=== PATIENT | female | born 1995 | race Caucasian/White ===

== ENCOUNTER 2017-07-17 17:38 | Emergency (ER) | payer OTHER ==
[2017-07-17] MEDS ORDERED: TRAMADOL HCL 50 MG TABLET PO ONE (18:21)
--- NOTE | 2017-07-17 18:23 | ER Document Report ---
ED Medical Screen (RME) - General Chief Complaint: Vaginal Bleeding Stated Complaint: STOMACH/PELVIC/BACK PAIN, VAGINAL BLEEDING Time Seen by Provider: 07/17/17 18:06 Notes: RME DISCLOSURE I have seen this patient as part of a Rapid Medical Evaluation and, if applicable, placed any initially appropriate orders. The patient will be seen and fully evaluated, including a full history and physical exam, by a provider ( in Main ED or Fast Track) when a room becomes available. 21-year-old female 3 months here with complaints of abdominal cramping and heavy vaginal bleeding that started late last night and into today. She states that she is going through many pads and completely soaking them. She also complains of passing some daley colored tissue. Her delivery was via . - Related Data Allergies/Adverse Reactions: steroids Allergy (Uncoded 07/17/17 17:42) Past Medical History - Social History Chew tobacco use (# tins/day): No Frequency of alcohol use: Occasional Drug Abuse: None Renal/ Medical History: Denies: Hx Peritoneal Dialysis Psychiatric Medical History: Reports: Hx Depression Past Surgical History: Reports: Hx Section - x1, Hx Cholecystectomy, Hx Tonsillectomy, Hx Tubal Ligation Physical Exam - Vital signs Vitals: Temp Pulse Resp BP Pulse Ox 97.8 F 94 20 133/72 H 94 07/17/17 17:43 07/17/17 17:43 07/17/17 17:43 07/17/17 17:43 07/17/17 17:43 Course - Vital Signs Vital signs: Temp Pulse Resp BP Pulse Ox 97.8 F 94 20 133/72 H 94 07/17/17 17:43 07/17/17 17:43 07/17/17 17:43 07/17/17 17:43 07/17/17 17:43
[2017-07-17 18:53] LABS: ABSOLUTE EOSINOPHILS # (AUTO) 0.3 10^3/uL (0.0-0.6); ABSOLUTE LYMPHOCYTES (AUTO) 2.8 10^3/uL (0.5-4.7); ABSOLUTE MONOCYTES (AUTO) 0.7 10^3/uL (0.1-1.4); ABSOLUTE NEUT (AUTO) 7.9 10^3/uL (1.7-8.2); BASOPHILS % (AUTO) 0.4 % (0-2); EOSINOPHILS % (AUTO) 2.1 % (0-6); HEMATOCRIT 40.9 % (36.0-47.0); HEMOGLOBIN 13.5 g/dL (12.0-15.5); LYMPHOCYTES % (AUTO) 24.1 % (13-45); MEAN CORPUSCULAR HEMOGLOBIN 27.5 pg (27.0-33.4); MEAN CORPUSCULAR HGB CONC 32.9 g/dL (32.0-36.0); MEAN CORPUSCULAR VOLUME 84 fl (80-97); MONOCYTES % (AUTO) 6.2 % (3-13); PLATELET COUNT 265 10^3/uL (150-450); RED BLOOD COUNT 4.89 10^6/uL (3.72-5.28); RED CELL DISTRIBUTION WIDTH 16.1 % (11.5-14.0); SEGMENTED NEUTROPHILS % (AUTO) 67.2 % (42-78); TOTAL CELLS COUNTED % (AUTO) 100 %; WHITE BLOOD COUNT 11.8 10^3/uL (4.0-10.5)
--- NOTE | 2017-07-17 19:10 | ER Document Report ---
ED GI/ - General Chief Complaint: Vaginal Bleeding Stated Complaint: STOMACH/PELVIC/BACK PAIN, VAGINAL BLEEDING Time Seen by Provider: 07/17/17 18:06 Mode of Arrival: Ambulatory Information source: Patient - HPI Patient complains to provider of: Abdominal pain, Vaginal bleeding Onset: Yesterday Notes: 07/17/17 19:08 Patient is 3 months via . She states that she had a normal period last month. She started to have vaginal bleeding yesterday which she states seemed like a normal period and then today she started to have a lot of severe pain in her lower abdomen and significantly heavy bleeding. She states that she is changing a tampon and a pad every hour. She does report seeing some blood clots. She is not on blood thinning medications. She denies fever. She denies any nausea, vomiting, diarrhea. No dysuria. She called her OB/ ACADEMIC ADMINISTRATOR who referred her to the emergency department due to the fact of her heavy amount of bleeding. She denies any chest pain or shortness of breath. No dizziness. No syncope. No fever. No other complaints. - Related Data Allergies/Adverse Reactions: steroids Allergy (Uncoded 07/17/17 17:42) Past Medical History - Social History Smoking Status: Current Every Day Smoker Chew tobacco use (# tins/day): No Frequency of alcohol use: Occasional Drug Abuse: None Family History: Reviewed & Not Pertinent Patient has suicidal ideation: No Patient has homicidal ideation: No Renal/ Medical History: Denies: Hx Peritoneal Dialysis Psychiatric Medical History: Reports: Hx Depression Past Surgical History: Reports: Hx Section - x1, Hx Cholecystectomy, Hx Tonsillectomy, Hx Tubal Ligation Review of Systems - Review of Systems -: Yes All other systems reviewed and negative Physical Exam - Vital signs Vitals: Temp Pulse Resp BP Pulse Ox 97.8 F 94 20 133/72 H 94 07/17/17 17:43 07/17/17 17:43 07/17/17 17:43 07/17/17 17:43 07/17/17 17:43 - Notes Notes: GENERAL: alert, cooperative, nontoxic, no distress. HEAD: normocephalic, atraumatic EYES: conjunctiva pink without discharge, no external redness or swelling. EARS: no external swelling, no external redness NOSE: atraumatic, no external swelling MOUTH/THROAT: mucous membranes moist and pink, posterior pharynx without erythema, swelling, exudate. No trismus or drooling. NECK: soft, supple, full range of motion, no meningismus. CHEST: no distress, lungs clear and equal throughout. No wheezing, rales, rhonchi. CARDIAC: regular rate and rhythm, no murmur, normal capillary refill, normal pulses. No peripheral edema noted. ABDOMEN: Soft, tenderness across the lower abdomen. No rebound tenderness, mild voluntary guarding. No mass. BACK: full range of motion, no CVA tenderness. EXTREMITIES: full range of motion of all extremities. No redness, no swelling. NEURO: alert and oriented x 3, no focal deficits, full range of motion of all extremities. PYSCH: appropriate mood, affect. Patient is cooperative. SKIN: pink, warm, dry, no rash. : Performed with female health analyst at the bedside. No external lesions. Small amount of blood within the vaginal vault. No clots. Cervix is closed. No active hemorrhage. Mild bilateral adnexal tenderness on bimanual exam, no cervical motion tenderness. Course - Re-evaluation Re-evalutation: 07/17/17 20:52 The patient is nontoxic appearing with stable vitals. She is here with complaints of heavy vaginal bleeding and pain. This started yesterday. At some point today she states she was changing her pad and tampon every hour. Pelvic exam in the emergency department does not show any significant bleeding, there is some blood within the vaginal vault but no active hemorrhage at this time. Her hemoglobin is 13.5. She has no other significant symptoms. GC chlamydia cultures currently pending. Wet prep is unremarkable. Quantitative hCG is negative. Pelvic ultrasound shows no acute abnormalities with no products of conception or other tissue within the endometrium. Patient appears to have a urinary tract infection. She will be given a dose of Keflex in the emergency department will be discharged home with Keflex and Voltaren to take for pain. She will be given an CALL WORKER referral since she recently moved here and does not have an CALL WORKER. She was instructed to return the emergency department if she gets to the point where she is changing tampon or pad more than once an hour has extreme dizziness, passes out, severe pain, high fever, or has any further concerns. The patient is noted to have elevated blood pressure during today's emergency department visit. The patient was informed of this finding. The patient was instructed that this may be related to pre-hypertension and requires further evaluation with a primary care provider. The patient has no hypertensive symptoms at this time. The patient's emergency department workup and current diagnosis were explained to the patient and or family. Follow-up instructions were provided. Medications if prescribed were discussed. Instructions for when to return to the emergency department including specific worrisome symptoms were discussed with the patient and/or family. - Vital Signs Vital signs: Temp Pulse Resp BP Pulse Ox 97.8 F 94 20 133/72 H 94 07/17/17 17:43 07/17/17 17:43 07/17/17 17:43 07/17/17 17:43 07/17/17 17:43 - Laboratory Result Diagrams: 07/17/17 18:37 Laboratory results interpreted by me: 07/17/17 07/17/17 18:37 19:27 WBC 11.8 H RDW 16.1 H Urine Protein 100 H Urine Blood LARGE H Ur Leukocyte Esterase MODERATE H - Diagnostic Test Radiology reviewed: Image reviewed, Reports reviewed - Ultrasound shows no acute abnormalities. Discharge - Discharge Clinical Impression: Dysfunctional uterine bleeding UTI (urinary tract infection) Qualifiers: Urinary tract infection type: acute cystitis Hematuria presence: without hematuria Qualified Code(s): N30.00 - Acute cystitis without hematuria Condition: Stable Disposition: HOME, SELF-CARE Instructions: Cephalexin ([facility]), Urinary Tract Infection ([facility]), Vaginal Bleeding ([facility]) Additional Instructions: Take medication as prescribed. Drink plenty fluids. Follow-up with CALL WORKER at the next available appointment. Follow-up sooner for increasing pain, fever, persistent vomiting, severe abdominal pain, passing out, dizziness, chest pain, or for any further concerns. Your blood pressure was elevated during today's visit. Have this rechecked with your doctor. Prescriptions: Cephalexin Monohydrate [Keflex 500 mg Capsule] 500 mg PO Q6H #28 capsule Diclofenac Sodium [Voltaren 50 Mg Tablet.Dr] 50 mg PO BID #20 tablet.dr Forms: Elevated Blood Pressure, Smoking Cessation Education Referrals: GRANT WILD MD [ACTIVE STAFF] - Follow up as needed [facility] [Provider Group] - Follow up as needed
[2017-07-17] MEDS ORDERED: KETOROLAC TROMETHAMINE INJ/PF 30 MG/1 ML SDV IM ONE (20:02)
[2017-07-17 20:13] LABS: APPEARANCE,URINE CLOUDY; BILIRUBIN,URINE NEGATIVE (NEGATIVE); COLOR,URINE RED; GLUCOSE, URINE NEGATIVE (NEGATIVE); KETONES,URINE NEGATIVE (NEGATIVE); LEUKOCYTE ESTERASE,URINE MODERATE (NEGATIVE); NITRITE,URINE NEGATIVE (NEGATIVE); PROTEIN,URINE 100 mg/dL (NEGATIVE); URINE SPECIFIC GRAVITY 1.016; UROBILINOGEN,URINE NEGATIVE mg/dL (<2.0)
[2017-07-17] MEDS ORDERED: CEPHALEXIN 500 MG CAPSULE PO ONE (20:27)
[2017-07-17 20:30] LABS: T.VAGINALIS (WET MOUNT) NO TRICHOMONAS SEEN; WBCS (WET MOUNT) 1+ WBCS SEEN; YEAST (WET MOUNT) NO YEAST SEEN
[2017-07-17 20:31] LABS: RBCS (WET MOUNT) 4+ RBCS SEEN
--- NOTE | 2017-07-17 20:47 | RADIOLOGY REPORT (SQ) ---
EXAM DESCRIPTION: U/S NON OB PEL TV W/DOPPLER COMPLETED DATE/TIME: 07/17/2017 8:34 pm REASON FOR STUDY: bleed; eval for rPOC COMPARISON: None. TECHNIQUE: Dynamic and static grayscale images acquired of the pelvis via transvaginal approach and recorded on PACS. Additional selected color Doppler and spectral images recorded. LIMITATIONS: Limited exam due to patient pain and overlying bowel gas. FINDINGS: UTERUS: Contour normal. No mass. ENDOMETRIAL STRIPE: No focal or generalized thickening. No masses. CERVIX: No nabothian cysts. RIGHT OVARY: Ovary not visualized. LEFT OVARY: Ovary not visualized. FREE FLUID: None noted. OTHER: No other significant finding. MEASUREMENTS: UTERUS: 4.6 x 5.2 x 9.5 cm. ENDOMETRIAL STRIPE: 4 mm. RIGHT OVARY: Not visualized. LEFT OVARY: Not visualized. IMPRESSION: LIMITED STUDY. OVARIES NOT VISUALIZED. NO RETAINED PRODUCTS, SOFT TISSUE, OR FLUID IN THE ENDOMETRIAL CAVITY. TECHNICAL DOCUMENTATION: JOB ID: [id number] [employer]- All Rights Reserved Reading location - IP/workstation name: [email or web address]
[2017-07-17 21:11] VITALS: BP 134/74
[2017-07-17 21:50] LABS: CHLAM PCR NOT DETECTED (NOT DETECT); GON PCR NOT DETECTED (NOT DETECT)
== END 2017-07-17 21:13 | disposition home or self-care (01) ==
LOC: ER 17:38
DX: N93.8 Other specified abnormal uterine and vaginal bleeding (principal); N30.00 Acute cystitis without hematuria; R10.2 Pelvic and perineal pain; R03.0 Elevated blood-pressure reading, without diagnosis of hypertension; F17.200 Nicotine dependence, unspecified, uncomplicated; Z98.890 Other specified postprocedural states
CPT/HCPCS: 99284; 96372; 36415; 87210; 84702; 85025; 81001; 87491; 87591; 76830; 93976; J1885

== ENCOUNTER 2017-09-19 19:27 | Emergency (ER) | payer OTHER ==
[2017-09-19] MEDS ORDERED: ONDANSETRON HCL INJ/PF 4 MG/2 ML SDV IV ONE (20:25)
[2017-09-19] MEDS ORDERED: FENTANYL CITRATE INJ/PF 100 MCG/2 ML AMPUL IV ONE (20:25)
[2017-09-19] MEDS ORDERED: NORMAL SALINE 1000 ML 1,000 ML IV ONE ×2 (20:25→22:36)
--- NOTE | 2017-09-19 20:32 | ER Document Report ---
ED GI/ - General Chief Complaint: Abdominal Pain Stated Complaint: ABDOMINAL PAIN Time Seen by Provider: 09/19/17 20:25 Notes: Chief complaint: abdominal pain: Abdominal pain History of complain:( obtained from----patient) 22 years old female presents today with periumbilical abdominal pain and discomfort early this morning gradually the pain descended towards the right lower quadrant. Sharp pain with fever and chills therefore present to the ED. Had some dysuria no frequency or urgency. Denies any other constitutional symptoms. Onset: One day since this morning gradual Duration: Since this morning Severity: Moderate to severe Quality: Sharp Context: Possible appendicitis Exacerbating factor and relieving factors: Pressure increases the pain REVIEW OF SYSTEMS: CONSTITUTIONAL : Denies fever, chills, or sweats. Denies recent illness. EENT: Denies eye, ear, throat, or mouth pain or symptoms. Denies nasal or sinus congestion or discharge. Denies throat, tongue, or mouth swelling or difficulty swallowing. CARDIOVASCULAR: Denies chest pain. Denies palpitations or racing or irregular heart beat. Denies ankle edema. RESPIRATORY: Denies cough, cold, or chest congestion. Denies shortness of breath, difficulty breathing, or wheezing. GASTROINTESTINAL: As per history of complain GENITOURINARY: Denies difficulty urinating, painful urination, burning, frequency, blood in urine, or discharge. FEMALE GENITOURINARY: Denies vaginal bleeding, heavy or abnormal periods, irregular periods. Denies vaginal discharge or odor. MUSCULOSKELETAL: Denies back or neck pain or stiffness. Denies joint pain or swelling. SKIN: Denies rash, lesions or sores. HEMATOLOGIC : Denies easy bruising or bleeding. LYMPHATIC: Denies swollen, enlarged glands. NEUROLOGICAL: Denies confusion or altered mental status. Denies passing out or loss of consciousness. Denies dizziness or lightheadedness. Denies headache. Denies weakness or paralysis or loss of use of either side. Denies problems with gait or speech. Denies sensory loss, numbness, or tingling. Denies seizures. PSYCHIATRIC: Denies anxiety or stress. Denies depression, suicidal ideation, or homicidal ideation. ALL OTHER SYSTEMS REVIEWED AND NEGATIVE. PHYSICAL EXAMINATION: GENERAL: Well-appearing, well-nourished and in mild to moderate acute distress. Morbid obesity HEAD: Atraumatic, normocephalic. EYES: Pupils equal round and reactive to light, extraocular movements intact, conjunctiva are normal. ENT: Nares patent, oropharynx clear without exudates. Moist mucous membranes. NECK: Normal range of motion, supple without lymphadenopathy LUNGS: Breath sounds clear to auscultation bilaterally and equal. No wheezes rales or rhonchi. HEART: Regular rate and rhythm without murmurs ABDOMEN: Soft, sharp tenderness over the right lower quadrant with rebound tenderness and guarding. Female : deferred Musculoskeletal: Normal range of motion, no pitting or edema. No cyanosis. NEUROLOGICAL: Cranial nerves grossly intact. Normal speech, normal gait. Normal sensory, motor exams PSYCH: Normal mood, normal affect. SKIN: Warm, Dry, normal turgor, no rashes or lesions noted. Dictation was performed using [employer] voice recognition software TRAVEL OUTSIDE OF THE [place] IN LAST 30 DAYS: No - Related Data Allergies/Adverse Reactions: steroids Allergy (Uncoded 07/17/17 17:42) Past Medical History - Social History Smoking Status: Unknown if Ever Smoked Chew tobacco use (# tins/day): No Smoking Education Provided: No Frequency of alcohol use: Rare Drug Abuse: None Family History: Reviewed & Not Pertinent Patient has suicidal ideation: No Patient has homicidal ideation: No Renal/ Medical History: Denies: Hx Peritoneal Dialysis Psychiatric Medical History: Reports: Hx Depression Past Surgical History: Reports: Hx Section - x1, Hx Cholecystectomy, Hx Tonsillectomy, Hx Tubal Ligation Review of Systems - Review of Systems Notes: Dictated Physical Exam - Vital signs Vitals: Temp Pulse Resp BP Pulse Ox 99.0 F 96 18 123/82 97 09/19/17 20:02 09/19/17 20:02 09/19/17 20:02 09/19/17 20:02 09/19/17 20:02 Course - Re-evaluation Re-evalutation: 09/19/17 20:31 Dictated 09/19/17 20:31 The case was discussed with surgeon elevator conductor. Requested me to do a CT of the abdomen - Vital Signs Vital signs: Temp Pulse Resp BP Pulse Ox 99.0 F 96 18 123/82 97 09/19/17 20:02 09/19/17 20:02 09/19/17 20:02 09/19/17 20:02 09/19/17 20:02 Discharge - Discharge Clinical Impression: Acute abdominal pain Acute appendicitis Qualifiers: Acute appendicitis type: with localized peritonitis Qualified Code(s): K35.3 - Acute appendicitis with localized peritonitis
[2017-09-19 21:00] LABS: ABSOLUTE BASOPHILS # (AUTO) 0.1 10^3/uL (0.0-0.2); ABSOLUTE EOSINOPHILS # (AUTO) 0.3 10^3/uL (0.0-0.6); ABSOLUTE LYMPHOCYTES (AUTO) 2.3 10^3/uL (0.5-4.7); ABSOLUTE MONOCYTES (AUTO) 0.7 10^3/uL (0.1-1.4); ABSOLUTE NEUT (AUTO) 7.3 10^3/uL (1.7-8.2); BASOPHILS % (AUTO) 0.5 % (0-2); EOSINOPHILS % (AUTO) 2.9 % (0-6); HEMATOCRIT 43.1 % (36.0-47.0); HEMOGLOBIN 14.4 g/dL (12.0-15.5); LYMPHOCYTES % (AUTO) 21.5 % (13-45); MEAN CORPUSCULAR HEMOGLOBIN 28.3 pg (27.0-33.4); MEAN CORPUSCULAR HGB CONC 33.3 g/dL (32.0-36.0); MEAN CORPUSCULAR VOLUME 85 fl (80-97); MONOCYTES % (AUTO) 6.3 % (3-13); PLATELET COUNT 213 10^3/uL (150-450); RED BLOOD COUNT 5.09 10^6/uL (3.72-5.28); RED CELL DISTRIBUTION WIDTH 15.6 % (11.5-14.0); SEGMENTED NEUTROPHILS % (AUTO) 68.8 % (42-78); TOTAL CELLS COUNTED % (AUTO) 100 %; WHITE BLOOD COUNT 10.7 10^3/uL (4.0-10.5)
[2017-09-19 21:04] LABS: APPEARANCE,URINE CLEAR; BILIRUBIN,URINE NEGATIVE (NEGATIVE); COLOR,URINE YELLOW; GLUCOSE, URINE NEGATIVE (NEGATIVE); KETONES,URINE NEGATIVE (NEGATIVE); LEUKOCYTE ESTERASE,URINE SMALL (NEGATIVE); NITRITE,URINE POSITIVE (NEGATIVE); PROTEIN,URINE NEGATIVE (NEGATIVE); URINE SPECIFIC GRAVITY 1.018; UROBILINOGEN,URINE NEGATIVE mg/dL (<2.0)
[2017-09-19 21:14] LABS: ALANINE AMINOTRANSFERASE 28 U/L (9-52); ALBUMIN 4.5 g/dL (3.5-5.0); ALKALINE PHOSPHATASE 61 U/L (38-126); ANION GAP 15 (5-19); ASPARTATE AMINO TRANSFERASE 18 U/L (14-36); BILIRUBIN,DIRECT 0.2 mg/dL (0.0-0.4); BILIRUBIN,TOTAL 0.2 mg/dL (0.2-1.3); BLOOD UREA NITROGEN 8 mg/dL (7-20); CALCIUM 9.8 mg/dL (8.4-10.2); CARBON DIOXIDE 26 mmol/L (22-30); CHLORIDE 106 mmol/L (98-107); GLUCOSE 91 mg/dL (75-110); LIPASE 45.3 U/L (23-300); POTASSIUM 4.3 mmol/L (3.6-5.0); SODIUM 146.5 mmol/L (137-145); TOTAL PROTEIN 6.8 g/dL (6.3-8.2)
--- NOTE | 2017-09-19 22:17 | ER Document Report ---
ED GI/ - General Chief Complaint: Abdominal Pain Stated Complaint: ABDOMINAL PAIN Time Seen by Provider: 09/19/17 20:25 Notes: Patient is a 22-year-old female presents emergency room with a chief complaint of periumbilical right lower quadrant pain. Patient states she is chronic pelvic pain due to complicated cysts on her ovaries. Patient states that she woke up this morning with pain around her bellybutton that is still present in that area and now shoots into her left lower quadrant. Patient denies any fevers or chills admits to nausea with occasional vomiting. States that she still has her appendix. Patient states that she is scheduled to have a procedure for her ovaries with her INTELLIGENCE AGENT regarding a tumor versus mass on her right ovary TRAVEL OUTSIDE OF THE [place] IN LAST 30 DAYS: No - Related Data Allergies/Adverse Reactions: steroids Allergy (Uncoded 07/17/17 17:42) Past Medical History - Social History Smoking Status: Unknown if Ever Smoked Chew tobacco use (# tins/day): No Frequency of alcohol use: Rare Drug Abuse: None Family History: Reviewed & Not Pertinent Patient has suicidal ideation: No Patient has homicidal ideation: No Renal/ Medical History: Denies: Hx Peritoneal Dialysis Psychiatric Medical History: Reports: Hx Depression Past Surgical History: Reports: Hx Section - x1, Hx Cholecystectomy, Hx Tonsillectomy, Hx Tubal Ligation Physical Exam - Vital signs Vitals: Temp Pulse Resp BP Pulse Ox 99.0 F 96 18 123/82 97 09/19/17 20:02 09/19/17 20:02 09/19/17 20:02 09/19/17 20:02 09/19/17 20:02 - Notes Notes: PHYSICAL EXAM GENERAL: Alert, interacts well. HEAD: Normocephalic, atraumatic. EYES: Pupils equal, round, and reactive to light. Extraocular movements intact. ENT: Oral mucosa moist, tongue midline. NECK: Full range of motion. Supple. Trachea midline. LUNGS: Clear to auscultation bilaterally, no wheezes, rales, or rhonchi. No respiratory distress. HEART: Regular rate and rhythm. No murmurs, gallops, or rubs. ABDOMEN: Soft, nondistended, nontender. No guarding, rebound, or rigidity.. Bowel sounds present in all 4 quadrants. Female exam deferred EXTREMITIES: Moves all 4 extremities spontaneously. No edema, radial and dorsalis pedis pulses 2/4 bilaterally. No cyanosis. NEUROLOGICAL: Alert and oriented x4. Normal speech. PSYCH: Normal affect, normal mood. SKIN: Warm, dry, normal turgor. No rashes or lesions noted. Course - Re-evaluation Re-evalutation: 09/20/17 01:08 Presentation of generalized, intermittent abdominal pain. Abdominal exam is benign with periumbical and RLQ tenderness without rebound . Vitals are normal at the time of arrival. Laboratories are unremarkable without evidence of cystitis, , or leukocytosis. Patient is overall very well in appearance. CT ordered in triage with normal appendix. Given tenderness, surgery consulted who asked for TVUS which shows minimal free fluid and omplicated cyst on left ovary, Right ovary without evidence of tumor and nothing evident on US from 06/2017. given based on clinical history and examination I do not suspect an acute appendicitis, tubo-ovarian abscess, related pathology, pelvic inflammatory disease, mesenteric ischemia, or pyelonephritis. Surgery consulted OBGYn who agrees with outpatient management , Will discharge home with return precautions and followup recommendations. - Vital Signs Vital signs: Temp Pulse Resp BP Pulse Ox 99.0 F 96 18 123/82 97 09/19/17 20:02 09/19/17 20:02 09/19/17 20:02 09/19/17 20:02 09/19/17 20:02 - Laboratory Result Diagrams: 09/19/17 20:40 09/19/17 20:40 Laboratory results interpreted by me: 09/19/17 09/19/17 09/19/17 20:40 20:40 20:40 WBC 10.7 H RDW 15.6 H Sodium 146.5 H Ammonia Urine Nitrite POSITIVE H Ur Leukocyte Esterase SMALL H 09/19/17 21:10 WBC RDW Sodium Ammonia < 8.7 L Urine Nitrite Ur Leukocyte Esterase - Diagnostic Test Radiology reviewed: Image reviewed, Reports reviewed Discharge - Discharge Clinical Impression: Chronic pelvic pain in female Condition: Good Disposition: HOME, SELF-CARE Additional Instructions: PELVIC PAIN: There are many causes of pain in the pelvic area. The cause could be the tubes, ovaries, uterus, intestines, appendix, pelvic muscles and connective tissue, or the urinary tract. The cause of your pelvic pain is not clear. However, it seems safe to treat you outside the hospital. If the pain sounds like a temporary problem, we sometimes wait to see if it goes away. Other patients may need additional tests, such as pelvic ultrasound or cultures. Conditions may change. Call us or come back for reexamination if any problems occur, such as: (1) Pain that becomes more severe, steady, or becomes concentrated in one specific area. Also, pain that is more severe with movement or coughing. (2) Vomiting that persists or becomes more frequent. (3) Blood in the vomitus, urine, or bowel movements. Blood in the stool may have a tarry or black appearance. (4) Shaking chills or fever greater than 100 degrees. (5) The abdomen becomes more distended or swollen. (6) Bowel movements cease. (7) Heavy vaginal bleeding. ORAL NARCOTIC MEDICATION: You have been given a prescription for pain control. This medication is a narcotic. It's best taken with food, as nausea can result if taken on an empty stomach. Don't operate machinery or drive within six hours of taking this medication. Do not combine this medicine with alcohol, or with any medication which can cause sedation (such as cold tablets or sleeping pills) unless you get permission from the physician. Narcotics tend to cause constipation. If possible, drink plenty of fluids and eat a diet high in fiber and fruits. Please be aware that prescription narcotics also have the potential for abuse. People become addicted to these medications because of the general sense of wellbeing that they induce. This feeling along with a significant reduction in tension, anxiety, and aggression provides a stimulating seductive quality to these drugs. Once your pain is under control, we encourage you to discard your unused narcotics. FOLLOW-UP CARE: If you have been referred to a physician for follow-up care, call the physician s office for an appointment as you were instructed or within the next two days. If you experience worsening or a significant change in your symptoms, notify the physician immediately or return to the Emergency Department at any time for re-evaluation. Prescriptions: Tramadol HCl 50 mg PO TID #15 tablet Forms: Parent Work Note Referrals: BRUNO CARRINGTON FNP [Primary Care Provider] - Follow up tomorrow
--- NOTE | 2017-09-19 22:22 | RADIOLOGY REPORT (SQ) ---
EXAM DESCRIPTION: CT ABD/PELVIS WITH IV ONLY COMPLETED DATE/TIME: 09/19/2017 10:06 pm REASON FOR STUDY: Acute appendicitis COMPARISON: None. TECHNIQUE: CT scan of the abdomen and pelvis performed using helical scanning technique with dynamic intravenous contrast injection. No oral contrast. Images reviewed with lung, soft tissue, and bone windows. Reconstructed coronal and sagittal MPR images reviewed. Delayed images for evaluation of the urinary system also acquired. All images stored on PACS. All CT scanners at this facility use dose modulation, iterative reconstruction, and/or weight based d osing when appropriate to reduce radiation dose to as low as reasonably achievable (ALARA). [facility]: Dose Right [facility]: CareDose [facility]: Dose Right [facility]: Teradose 4D [facility]: panOpen CONTRAST TYPE AND DOSE: contrast/concentration: Isovue 370.00 mg/ml; Total Contrast Delivered: 65.0 ml; Total Saline Delivered: 30.0 ml RENAL FUNCTION: None required. The patient is less than 50 years old. RADIATION DOSE: CT Rad equipment meets quality standard of care and radiation dose reduction techniq ues were employed. CTDIvol: 21.1 mGy. DLP: 2394 mGy-cm.. LIMITATIONS: None. FINDINGS: LOWER CHEST: No significant findings. No nodules or infiltrates. LIVER: Normal size. No masses. No dilated ducts. SPLEEN: Normal size. No focal lesions. PANCREAS: No masses. No significant calcifications. No adjacent inflammation or peripancreatic fluid collections. Pancreatic duct not dilated. GALLBLADDER: Surgically absent. ADRENAL GLANDS: No significant masses or asymmetry. RIGHT KIDNEY AND URETER: No solid masses. No significant calcifications. No hydronephrosis or hyd roureter. LEFT KIDNEY AND URETER: No solid masses. No significant calcifications. No hydronephrosis or hydr oureter. AORTA AND VESSELS: No aneurysm. No dissection. Renal arteries, SMA, celiac without stenosis. RETROPERITONEUM: No retroperitoneal adenopathy, hemorrhage or masses. BOWEL AND PERITONEAL CAVITY: No masses or inflammatory changes. No free fluid or peritoneal masses. APPENDIX: Normal. PELVIS: No mass. No free fluid. Normal bladder. ABDOMINAL WALL: No masses. No hernias. BONES: No significant or acute findings. OTHER: No other significant finding. IMPRESSION: NO SIGNIFICANT OR ACUTE FINDING IN THE ABDOMEN OR PELVIS ON CT SCAN WITH IV CONTRAST. TECHNICAL DOCUMENTATION: JOB ID: [id number] Quality ID # [id number]: Final reports with documentation of one or more dose reduction techniques (e.g., Au tomated exposure control, adjustment of the mA and/or kV according to patient size, use of iterative reconstruction technique) 2010 [employer]- All Rights Reserved Reading location - IP/workstation name: [email or web address]
--- NOTE | 2017-09-19 23:48 | RADIOLOGY REPORT (SQ) ---
EXAM DESCRIPTION: CLINICAL HISTORY: 22 years Female RLQ pain COMPARISON: None. TECHNIQUE: Transvaginal duplex imaging performed to evaluate the pelvis. FINDINGS: Trace fluid is present in the cul-de-sac. Uterus measures 9.1 x 4.7 x 6.3 cm. Right ovary measures 2.6 x 4.7 x 2.3 cm. Normal ovarian blood flow is present. The left ovary measures 3.8 x 1.9 x 2 cm. There is normal ovarian blood flow. Complex cyst measures 2.3 x 1.6 cm. This is almost certainly benign and no follow-up is recommended. Endometrial stripe is 1.6 cm. No adnexal masses are noted. IMPRESSION: No acute process noted Trace fluid in the pelvis, likely physiologic Small left ovarian cyst which is almost certainly benign and no follow-up is recommended
[2017-09-20] MEDS ORDERED: TRAMADOL HCL 50 MG TABLET PO ONE (00:56)
--- NOTE | 2017-09-20 01:09 | PDOC CONSULTATION ---
Consultation Consult Date: 09/20/17 Consult reason:: abdominal pains History of Present Illness Admission Date/PCP: L[facility]SE[facility] Patient complains of: abdominal pains History of Present Illness: PANDA BUTTS is a 22 year old female with history of chronic pelvic pains woke up morning of 09/19/17 with severe RLQ pains and claimed to have a temperature of 100 degrees. Went to ED and had essentially normal CT scan and US of pelvis except for a likely benign cyst of the left ovary. Claims she is scheduled for removal of a "tumor" on the right ovary 10/23/17 at the [facility]. Past Medical History Psychiatric Medical History: Reports: Depression Past Surgical History Past Surgical History: Reports: Section - x1, Cholecystectomy, Tonsillectomy, Tubal Ligation Social History Smoking Status: Unknown if Ever Smoked Family History Family History: Reviewed & Not Pertinent Parental Family History Reviewed: Yes Children Family History Reviewed: No Sibling(s) Family History Reviewed.: No Medication/Allergy Home Medications: Cephalexin Monohydrate [Keflex 500 mg Capsule] 500 mg PO Q6H #28 capsule Diclofenac Sodium [Voltaren 50 Mg Tablet.] 50 mg PO BID #20 tablet.dr Paroxetine HCl [Paxil 20 mg Tablet] 20 mg PO DAILY 07/17/17 Allergies/Adverse Reactions: steroids Allergy (Uncoded 07/17/17 17:42) Review of Systems Constitutional: PRESENT: fever(s) Eyes: PRESENT: other - no visual/hearing chamges Cardiovascular: PRESENT: other - no chest pains/cough Gastrointestinal: PRESENT: abdominal pain, nausea Genitourinary: PRESENT: other - no dysuria Neurological: PRESENT: other - no seizures Hematologic/Lymphatic: PRESENT: other - no easy bruising Physical Exam Vital Signs: Temp Pulse Resp BP Pulse Ox 99.0 F 96 18 123/82 97 09/19/17 20:02 09/19/17 20:02 09/19/17 20:02 09/19/17 20:02 09/19/17 20:02 Intake & Output 09/18/17 09/19/17 09/20/17 06:59 06:59 06:59 Weight 127.2 kg General appearance: PRESENT: mild distress Head exam: PRESENT: atraumatic Eye exam: PRESENT: conjunctiva pink Mouth exam: PRESENT: moist Neck exam: PRESENT: full ROM Respiratory exam: PRESENT: clear to auscultation [place] Cardiovascular exam: PRESENT: RRR Pulses: PRESENT: normal radial pulses GI/Abdominal exam: PRESENT: soft, tenderness - RLQ and pelvic Rectal exam: PRESENT: deferred Extremities exam: PRESENT: full ROM Musculoskeletal exam: PRESENT: ambulatory Neurological exam: PRESENT: alert, oriented to person, oriented to place, oriented to time, oriented to situation Psychiatric exam: PRESENT: anxious Skin exam: PRESENT: normal color, warm Results Laboratory Results: 09/19/17 20:40 09/19/17 20:40 09/19/17 09/19/17 09/19/17 20:40 20:40 20:40 WBC 10.7 H RBC 5.09 Hgb 14.4 Hct 43.1 MCV 85 MCH 28.3 MCHC 33.3 RDW 15.6 H Plt Count 213 Seg Neutrophils % 68.8 Lymphocytes % 21.5 Monocytes % 6.3 Eosinophils % 2.9 Basophils % 0.5 Absolute Neutrophils 7.3 Absolute Lymphocytes 2.3 Absolute Monocytes 0.7 Absolute Eosinophils 0.3 Absolute Basophils 0.1 Sodium 146.5 H Potassium 4.3 Chloride 106 Carbon Dioxide 26 Anion Gap 15 BUN 8 Creatinine 0.79 Est GFR ( Amer) > 60 Est GFR (Non-Af Amer) > 60 Glucose 91 Calcium 9.8 Total Bilirubin 0.2 AST 18 ALT 28 Alkaline Phosphatase 61 Ammonia Total Protein 6.8 Albumin 4.5 Lipase 45.3 Urine Color YELLOW Urine Appearance CLEAR Urine pH 5.0 Ur Specific [place] 1.018 Urine Protein NEGATIVE Urine Glucose (UA) NEGATIVE Urine Ketones NEGATIVE Urine Blood NEGATIVE Urine Nitrite POSITIVE H Ur Leukocyte Esterase SMALL H Urine WBC (Auto) 37 Urine RBC (Auto) 1 09/19/17 21:10 WBC RBC Hgb Hct MCV MCH MCHC RDW Plt Count Seg Neutrophils % Lymphocytes % Monocytes % Eosinophils % Basophils % Absolute Neutrophils Absolute Lymphocytes Absolute Monocytes Absolute Eosinophils Absolute Basophils Sodium Potassium Chloride Carbon Dioxide Anion Gap BUN Creatinine Est GFR ( Amer) Est GFR (Non-Af Amer) Glucose Calcium Total Bilirubin AST ALT Alkaline Phosphatase Ammonia < 8.7 L Total Protein Albumin Lipase Urine Color Urine Appearance Urine pH Ur Specific [place] Urine Protein Urine Glucose (UA) Urine Ketones Urine Blood Urine Nitrite Ur Leukocyte Esterase Urine WBC (Auto) Urine RBC (Auto) Impressions: Abdomen/Pelvis CT 09/19/17 20:25 IMPRESSION: NO SIGNIFICANT OR ACUTE FINDING IN THE ABDOMEN OR PELVIS ON CT SCAN WITH IV CONTRAST. Transvaginal US 09/19/17 22:33 IMPRESSION: No acute process noted Trace fluid in the pelvis, likely physiologic Small left ovarian cyst which is almost certainly benign and no follow-up is recommended Assessment & Plan - Diagnosis (1) Chronic pelvic pain in female Is this a current diagnosis for this admission?: Yes - Time Time Spent: 30 to 50 Minutes - Plan Summary Plan Summary: I have D/W Dr Petersen (business center attendant microsoft dynamics consultant) since pt claims she is scheduled for right ovarian surgery at the [facility] 10/23/17. With all her work-up essentially normal, he would not take her to surgery and remove the right ovary, I also don't see any need from general surgical viewpoint to take her to OR at this time. I have communicated to her these decisions. She said she can see her PMD for ff up. I told ER DIRECTOR OF SCIENTIFIC RESEARCH to give her some Tramadol prescription and if her symptoms don' t improve then she can either go to [facility] or here. Would like to hold off antibiotics since there is no obvious infection despite patient claiming low grade fever.
[2017-09-20 01:30] VITALS: BP 127/72
== END 2017-09-20 01:26 | disposition home or self-care (01) ==
LOC: ER 19:27
DX: G89.29 Other chronic pain (principal); R10.2 Pelvic and perineal pain; R10.33 Periumbilical pain; R10.32 Left lower quadrant pain; Z90.49 Acquired absence of other specified parts of digestive tract; Z98.51 Tubal ligation status
CPT/HCPCS: 99285; 96361; 96374; 96375; 36415; 82140; 83690; 85025; 81025; 80076; 80048; 81001; 76830; 93976; 74177; J3010; J2405; J7030

== ENCOUNTER 2018-05-22 17:18 | Emergency (ER) | payer OTHER ==
--- NOTE | 2018-05-22 17:46 | RADIOLOGY REPORT (SQ) ---
EXAM DESCRIPTION: HAND RIGHT 3 VIEWS COMPLETED DATE/TIME: 05/22/2018 5:34 pm REASON FOR STUDY: Punched the house. Hand swollen and in pain COMPARISON: None. EXAM PARAMETERS: NUMBER OF VIEWS: Three views. TECHNIQUE: AP, lateral and oblique radiographic images acquired of the right hand. LIMITATIONS: None. FINDINGS: MINERALIZATION: Normal. BONES: No acute fracture or dislocation. No worrisome bone lesions. JOINTS: No effusions. SOFT TISSUES: No soft tissue swelling. No foreign body. OTHER: No other significant finding. IMPRESSION: NEGATIVE STUDY OF THE RIGHT HAND. NO RADIOGRAPHIC EVIDENCE OF ACUTE INJURY. TECHNICAL DOCUMENTATION: JOB ID: [id number] [employer]- All Rights Reserved Reading location - IP/workstation name: [email or web address]
--- NOTE | 2018-05-22 18:44 | ER Document Report ---
ED Medical Screen (RME) - General Chief Complaint: Possible Kidney Stone Stated Complaint: BACK/PELVIC PAIN, HAND PAIN Time Seen by Provider: 05/22/18 18:28 Primary Care Provider: BRUNO CARRINGTON FNP [Primary Care Provider] - Follow up as needed Mode of Arrival: Ambulatory Information source: Patient Notes: 22-year-old female presents emergency department with complaints of left flank pain, nausea, hematuria for the last 3 days. Patient describes the pain as a sharp and stabbing sensation located in the left flank that radiates into the lower pelvis. She states that movement exacerbates the pain. No alleviating factors. She has tried Tylenol Motrin without relief of symptoms. Patient states that she does have a history of kidney stones. She states that her last stone was 2 months ago and seen on a CT abdomen and pelvis. Patient also complains of right hand pain. Patient states that she punched a wall yesterday. I have greeted and performed a rapid initial assessment of this patient. A comprehensive ED assessment and evaluation of the patient, analysis of test results and completion of the medical decision making process will be conducted by additional ED providers. PHYSICAL EXAMINATION: GENERAL: Well-appearing, well-nourished and in no acute distress. HEAD: Atraumatic, normocephalic. EYES: Pupils equal round extraocular movements intact, conjunctiva are normal. ENT: Nares patent NECK: Normal range of motion LUNGS: No respiratory distress Musculoskeletal: Right third and fourth metacarpal tenderness to palpation. Contusions are appreciated. 2+ radial pulse. NEUROLOGICAL: Normal speech, normal gait. PSYCH: Normal mood, normal affect. SKIN: Warm, Dry, normal turgor, Contusion to the 3rd and 4th fingers. TRAVEL OUTSIDE OF THE [place] IN LAST 30 DAYS: No - Related Data Allergies/Adverse Reactions: steroids Allergy (Uncoded 05/22/18 17:46) Past Medical History - General Last Menstrual Period: 05/02/18 - Social History Chew tobacco use (# tins/day): No Frequency of alcohol use: Occasional Drug Abuse: None Renal/ Medical History: Reports: Hx Kidney Stones. Denies: Hx Peritoneal Dialysis Psychiatric Medical History: Reports: Hx Depression Past Surgical History: Reports: Hx Section - x1, Hx Cholecystectomy, Hx Oral Surgery - wisdom, Hx Tonsillectomy, Hx Tubal Ligation Physical Exam - Vital signs Vitals: Temp Pulse Resp BP Pulse Ox 97.8 F 84 20 129/73 H 100 05/22/18 17:48 05/22/18 17:48 05/22/18 17:48 05/22/18 17:48 05/22/18 17:48 Course - Vital Signs Vital signs: Temp Pulse Resp BP Pulse Ox 97.8 F 84 20 129/73 H 100 05/22/18 17:48 05/22/18 17:48 05/22/18 17:48 05/22/18 17:48 05/22/18 17:48 Doctor's Discharge - Discharge Referrals: BRUNO CARRINGTON FNP [Primary Care Provider] - Follow up as needed
[2018-05-22 19:10] LABS: ABSOLUTE EOSINOPHILS # (AUTO) 0.2 10^3/uL (0.0-0.6); ABSOLUTE LYMPHOCYTES (AUTO) 2.4 10^3/uL (0.5-4.7); ABSOLUTE MONOCYTES (AUTO) 0.6 10^3/uL (0.1-1.4); ABSOLUTE NEUT (AUTO) 6.2 10^3/uL (1.7-8.2); BASOPHILS % (AUTO) 0.5 % (0-2); EOSINOPHILS % (AUTO) 2.3 % (0-6); HEMATOCRIT 41.5 % (36.0-47.0); HEMOGLOBIN 13.9 g/dL (12.0-15.5); MEAN CORPUSCULAR HEMOGLOBIN 29.3 pg (27.0-33.4); MEAN CORPUSCULAR HGB CONC 33.5 g/dL (32.0-36.0); MEAN CORPUSCULAR VOLUME 88 fl (80-97); MONOCYTES % (AUTO) 6.6 % (3-13); PLATELET COUNT 242 10^3/uL (150-450); RED BLOOD COUNT 4.74 10^6/uL (3.72-5.28); RED CELL DISTRIBUTION WIDTH 14.5 % (11.5-14.0); SEGMENTED NEUTROPHILS % (AUTO) 65.6 % (42-78); TOTAL CELLS COUNTED % (AUTO) 100 %; WHITE BLOOD COUNT 9.4 10^3/uL (4.0-10.5)
[2018-05-22 19:13] LABS: APPEARANCE,URINE CLOUDY; BILIRUBIN,URINE NEGATIVE (NEGATIVE); COLOR,URINE YELLOW; GLUCOSE, URINE NEGATIVE (NEGATIVE); KETONES,URINE NEGATIVE (NEGATIVE); LEUKOCYTE ESTERASE,URINE LARGE (NEGATIVE); NITRITE,URINE NEGATIVE (NEGATIVE); PROTEIN,URINE NEGATIVE (NEGATIVE); URINE SPECIFIC GRAVITY 1.013; UROBILINOGEN,URINE NEGATIVE mg/dL (<2.0)
[2018-05-22 19:23] LABS: ALANINE AMINOTRANSFERASE 28 U/L (9-52); ALBUMIN 4.4 g/dL (3.5-5.0); ALKALINE PHOSPHATASE 70 U/L (38-126); ANION GAP 10 (5-19); ASPARTATE AMINO TRANSFERASE 18 U/L (14-36); BILIRUBIN,DIRECT 0.3 mg/dL (0.0-0.4); BILIRUBIN,TOTAL 0.3 mg/dL (0.2-1.3); BLOOD UREA NITROGEN 5 mg/dL (7-20); CALCIUM 9.3 mg/dL (8.4-10.2); CARBON DIOXIDE 29 mmol/L (22-30); CHLORIDE 105 mmol/L (98-107); GLUCOSE 87 mg/dL (75-110); POTASSIUM 4.5 mmol/L (3.6-5.0); SODIUM 143.5 mmol/L (137-145); TOTAL PROTEIN 6.4 g/dL (6.3-8.2)
[2018-05-22] MEDS ORDERED: CEPHALEXIN 500 MG CAPSULE PO ONE (19:25)
[2018-05-22] MEDS ORDERED: PHENAZOPYRIDINE HCL 200 MG TABLET PO ONE (19:25)
--- NOTE | 2018-05-22 21:56 | RADIOLOGY REPORT (SQ) ---
US RETROPERITONEUM LIMITED HISTORY: Left flank pain. COMPARISON: None. TECHNIQUE: Grayscale and color Doppler ultrasound images of the kidneys were obtained. FINDINGS: The right kidney measures 10.1 cm in length, which is normal size. The cortex has normal thickness and echogenicity. There is no right-sided kidney stone, mass or hydronephrosis. The left kidney measures 12.1 cm in length, which is normal size. The cortex has normal thickness and echogenicity. There is no left-sided kidney stone, mass or hydronephrosis. The urinary bladder is unremarkable. IMPRESSION: No acute renal findings.
[2018-05-22 22:08] VITALS: BP 129/74
--- NOTE | 2018-05-24 14:34 | ER Document Report ---
Entered by GRACY LARSON SCRIBE 05/22/181929 Acting as scribe for:NOE ROMAN MD ED General - General Chief Complaint: Possible Kidney Stone Stated Complaint: BACK/PELVIC PAIN, HAND PAIN Time Seen by Provider: 05/22/18 18:28 Primary Care Provider: BRUNO CARRINGTON FNP [Primary Care Provider] - Follow up as needed Mode of Arrival: Ambulatory Notes: Patient is a 22-year-old female with a history of kidney stones presents to the emergency department complaining of left flank pain, urine frequency, urinary burning onset 3 days ago. She describes her left flank pain as a sharp and stabbing sensation that radiates into her lower pelvis. She also states she noticed hematuria this morning. She states she feels like she could have possibly passed the stone this morning. She reports having a confirmed kidney stone via CT of abdomen and pelvis 2 months ago. Patient also complains of right hand pain. Patient states she had been drinking last night and received some bad news. She states she proceeded to punch a wall in her home and has had subsequent right hand pain since. Patient states she currently takes Flexeril for her menstrual cycle. TRAVEL OUTSIDE OF THE [place] IN LAST 30 DAYS: No - Related Data Allergies/Adverse Reactions: steroids Allergy (Uncoded 05/22/18 19:54) Past Medical History - General Information source: Patient Last Menstrual Period: 05/02/18 - Social History Smoking Status: Current Every Day Smoker Chew tobacco use (# tins/day): No Frequency of alcohol use: Occasional Drug Abuse: None Family History: Reviewed & Not Pertinent Patient has suicidal ideation: No Patient has homicidal ideation: No Renal/ Medical History: Reports: Hx Kidney Stones Psychiatric Medical History: Reports: Hx Depression Past Surgical History: Reports: Hx Section - x1, Hx Cholecystectomy, Hx Oral Surgery - wisdom, Hx Tonsillectomy, Hx Tubal Ligation Review of Systems - Review of Systems Constitutional: No symptoms reported EENT: No symptoms reported Cardiovascular: No symptoms reported Respiratory: No symptoms reported Gastrointestinal: No symptoms reported Genitourinary: See HPI, Burning, Frequency, Flank pain, Hematuria Female Genitourinary: No symptoms reported Musculoskeletal: No symptoms reported Skin: No symptoms reported Hematologic/Lymphatic: No symptoms reported Neurological/Psychological: No symptoms reported -: Yes All other systems reviewed and negative Physical Exam - Vital signs Vitals: Temp Pulse Resp BP Pulse Ox 97.8 F 84 20 129/73 H 100 05/22/18 17:48 05/22/18 17:48 05/22/18 17:48 05/22/18 17:48 05/22/18 17:48 - Notes Notes: GENERAL: Alert, interacts well. No acute distress. HEAD: Normocephalic, atraumatic. EYES: Pupils equal, round, and reactive to light. Extraocular movements intact. ENT: Oral mucosa moist, tongue midline. NECK: Full range of motion. Supple. Trachea midline. LUNGS: Clear to auscultation bilaterally, no wheezes, rales, or rhonchi. No respiratory distress. HEART: Regular rate and rhythm. No murmurs, gallops, or rubs. ABDOMEN: Soft, obese, non-tender. Non-distended. Bowel sounds present in all 4 quadrants. EXTREMITIES: Moves all 4 extremities spontaneously. Tender to palpation to the right hand across the 4th and 5th metacarpal heads, no appreciable swelling. Maintains fingers of right hand in a hyperextended position. NEUROLOGICAL: Alert and oriented x3. Normal speech. PSYCH: Normal affect, normal mood. SKIN: Warm, dry, normal turgor. No rashes or lesions noted. BACK: Left CVA tenderness to percussion. Left lumbar tenderness to palpation. Course - Vital Signs Vital signs: Temp Pulse Resp BP Pulse Ox 98.4 F 83 14 129/74 H 100 05/22/18 22:07 05/22/18 22:07 05/22/18 22:07 05/22/18 22:07 05/22/18 22:07 - Laboratory Result Diagrams: 05/22/18 18:52 05/22/18 18:52 Laboratory results interpreted by me: 05/22/18 05/22/18 05/22/18 18:52 18:52 18:52 RDW 14.5 H BUN 5 L Urine Blood SMALL H Ur Leukocyte Esterase LARGE H - Diagnostic Test Radiology reviewed: Reports reviewed - Renal ultrasound is unremarkable. X-ray of the right hand does not show fractures. Discharge - Discharge Clinical Impression: Left flank pain Urinary tract infection Qualifiers: Urinary tract infection type: site unspecified Hematuria presence: with hematuria Qualified Code(s): N39.0 - Urinary tract infection, site not specified; R31.9 - Hematuria, unspecified Contusion of right hand Qualifiers: Encounter type: initial encounter Qualified Code(s): S60.221A - Contusion of right hand, initial encounter Condition: Stable Disposition: HOME, SELF-CARE Additional Instructions: Urinary Tract Infection Your evaluation indicates that you have a urinary tract infection. This is due to germs growing in the bladder. This is a common problem. This infection usually responds quickly to antibiotics. Your antibiotic should be taken exactly as prescribed. Drink plenty of fluids -- three to four quarts a day. Occasionally, a bladder anesthetic will be prescribed to help stop the feeling of urgency until the antibiotic has a chance to clear the infection. This may cause your urine to be dark orange. Certain urine infections require a culture. If the doctor obtained a culture, the results will be back in two days. You should call to see if a change in treatment is needed. A repeat urinalysis after you finish treatment is often recommended. The physician will let you know if further testing is required. Call the doctor if you develop fever, chills, flank pain, inability to urinate, or blood in the urine. Hand contusion Your injury has resulted in a contusion -- a crushing of the deep tissues. No injury to important structures was detected during the physician's exam. Contusions vary in the amount of pain they cause, and in the length of time required for healing. Typically, the area will become bruised, and will remain painful to touch for two or three weeks. However, most patients are back to working and playing within a few days. After the initial period of rest and cold-packs, your symptoms (together with the doctor's recommendations) will determine how rapidly you can get back to full activity. Usually this means "do what feels okay, but don't do things t hat hurt." If re-examination was recommended, it's important to follow up as instructed. Call the doctor or return any time if pain increases, if swelling becomes severe, if you develop numbness or weakness in an injured extremity, or if any other alarming symptoms occur. * Your evaluation shows that you have a urinary tract infection. It is not likely that the infection is in your kidney based on the your lab work and the ultrasound. The x-ray of your hand did not show any fractures. Take medications as prescribed. Drink plenty of fluids. Take Motrin or Aleve along with Tylenol for the pain. Follow-up with your primary care provider if not improving. RETURN TO THE EMERGENCY ROOM IF ANY NEW OR WORSENING SYMPTOMS. Prescriptions: Cephalexin Monohydrate [Keflex 500 mg Capsule] 500 mg PO TID #15 capsule Phenazopyridine HCl [Pyridium 200 mg Tablet] 200 mg PO TID #10 tablet Referrals: BRUNO CARRINGTON FNP [Primary Care Provider] - Follow up as needed Scribe Attestation: 05/22/18 22:19 I personally performed the services described in the documentation, reviewed and edited the documentation which was dictated to the scribe in my presence, and it accurately records my words and actions. I personally performed the services described in the documentation, reviewed and edited the documentation which was dictated to the scribe in my presence, and it accurately records my words and actions.
== END 2018-05-22 22:45 | disposition home or self-care (01) ==
LOC: ER 17:18
DX: N39.0 Urinary tract infection, site not specified (principal); R31.9 Hematuria, unspecified; S60.221A Contusion of right hand, initial encounter; W22.01XA Walked into wall, initial encounter; Y92.009 Unspecified place in unspecified non-institutional (private) residence as the place of occurrence of the external cause; F17.200 Nicotine dependence, unspecified, uncomplicated; Z87.442 Personal history of urinary calculi; Z90.49 Acquired absence of other specified parts of digestive tract; Z98.51 Tubal ligation status; Z88.8 Allergy status to other drugs, medicaments and biological substances
CPT/HCPCS: 99284; 36415; 87086; 85025; 81025; 87088; 80053; 81001; 87186; 73130; 76775; J3490

== ENCOUNTER 2018-12-30 13:32 | Emergency (ER) | payer OTHER ==
[2018-12-30] MEDS ORDERED: HYDROCODONE/ACETAMINOPHEN 5-325 MG TABLET PO ONE (15:59)
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
[2018-12-30 17:09] VITALS: BP 139/82
== END 2018-12-30 17:10 | disposition home or self-care (01) ==
LOC: ER 13:32
DX: S16.1XXA Strain of muscle, fascia and tendon at neck level, initial encounter (principal); S29.012A Strain of muscle and tendon of back wall of thorax, initial encounter; V89.2XXA Person injured in unspecified motor-vehicle accident, traffic, initial encounter; F17.200 Nicotine dependence, unspecified, uncomplicated; Z87.442 Personal history of urinary calculi; Z90.49 Acquired absence of other specified parts of digestive tract; Z98.51 Tubal ligation status
CPT/HCPCS: 72070; 72125

== ENCOUNTER 2019-04-16 12:03 | Emergency (ER) | payer OTHER ==
[2019-04-16] MEDS ORDERED: CLINDAMYCIN 600 MG/D5W RTU 600 MG/50 ML RTUPB IV ONE (12:20)
[2019-04-16] MEDS ORDERED: HYDROCODONE/ACETAMINOPHEN 5-325 MG TABLET PO ONE ×2 (12:23→15:16)
--- NOTE | 2019-04-16 12:23 | ER Document Report ---
ED Medical Screen (RME) - General TRAVEL OUTSIDE OF THE [place] IN LAST 30 DAYS: No <TURNER HOANG - Last Filed: 04/16/19 12:20> <JENNIFER CHEATHAM IV - Last Filed: 04/16/19 14:57> - General Chief Complaint: Redness of Eye Stated Complaint: LEFT EYE PAIN Time Seen by Provider: 04/16/19 12:11 Primary Care Provider: BRUNO CARRINGTON FNP [Primary Care Provider] - Follow up as needed Notes: Patient is a 23-year-old female who presents to the emergency department with a chief complaint of left eye pain and swelling. She started to have her symptoms 6 days ago. Her daughter coughed in her face about a week ago and was diagnosed with conjunctivitis. She started an antibiotic eyedrop 6 days ago. 2 days ago, she was switched to erythromycin eye ointment and she states that her symptoms have not improved. She states that she has difficulty seeing now. She also reports pressure behind her left eye. Denies fever. Exam: Conjunctival injection. Mild edema noted to the left eyelid. I have greeted and performed a rapid initial assessment of this patient. A comprehensive ED assessment and evaluation of the patient, analysis of test results and completion of medical decision making process will be conducted by an additional ED providers. (VIKTORTURNER Joaquin) - Related Data Allergies/Adverse Reactions: steroids Allergy (Uncoded 12/30/18 13:34) Past Medical History Renal/ Medical History: Reports: Hx Kidney Stones. Denies: Hx Peritoneal Dialysis GI Medical History: Reports: Hx Gastroesophageal Reflux Disease Psychiatric Medical History: Reports: Hx Anxiety, Hx Bipolar Disorder, Hx Depression, Hx Personality Disorder, Hx Post Traumatic Stress Disorder Past Surgical History: Reports: Hx Section - x1, Hx Cholecystectomy, Hx Gynecologic Surgery - ovarian cyst, Hx Oral Surgery - wisdom, Hx Tonsillectomy, Hx Tubal Ligation <TURNER HOANG - Last Filed: 04/16/19 12:20> Physical Exam - Vital signs Vitals: Temp Pulse Resp BP Pulse Ox 98.1 F 99 20 150/106 H 96 04/16/19 12:08 04/16/19 12:08 04/16/19 12:08 04/16/19 12:08 04/16/19 12:08 Course - Laboratory Result Diagrams: 04/16/19 13:05 04/16/19 13:05 <JENNIFER CHEATHAM IV - Last Filed: 04/16/19 14:57> - Vital Signs Vital signs: Temp Pulse Resp BP Pulse Ox 98.1 F 99 20 150/106 H 96 04/16/19 12:08 04/16/19 12:08 04/16/19 12:08 04/16/19 12:08 04/16/19 12:08 - Laboratory Laboratory results interpreted by me: 04/16/19 13:05 RDW 14.6 H Doctor's Discharge <TURNER HOANG - Last Filed: 04/16/19 12:20> <JENNIFER CHEATHAM IV - Last Filed: 04/16/19 14:57> - Discharge Referrals: BRUNO CARRINGTON FNP [Primary Care Provider] - Follow up as needed
[2019-04-16 13:29] LABS: ABSOLUTE EOSINOPHILS # (AUTO) 0.2 10^3/uL (0.0-0.6); ABSOLUTE LYMPHOCYTES (AUTO) 1.7 10^3/uL (0.5-4.7); ABSOLUTE MONOCYTES (AUTO) 0.6 10^3/uL (0.1-1.4); ABSOLUTE NEUT (AUTO) 6.2 10^3/uL (1.7-8.2); BASOPHILS % (AUTO) 0.4 % (0-2); HEMATOCRIT 43.4 % (36.0-47.0); HEMOGLOBIN 14.8 g/dL (12.0-15.5); LYMPHOCYTES % (AUTO) 19.7 % (13-45); MEAN CORPUSCULAR HGB CONC 34.1 g/dL (32.0-36.0); MEAN CORPUSCULAR VOLUME 85 fl (80-97); MONOCYTES % (AUTO) 7.1 % (3-13); PLATELET COUNT 199 10^3/uL (150-450); RED CELL DISTRIBUTION WIDTH 14.6 % (11.5-14.0); SEGMENTED NEUTROPHILS % (AUTO) 70.8 % (42-78); TOTAL CELLS COUNTED % (AUTO) 100 %; WHITE BLOOD COUNT 8.8 10^3/uL (4.0-10.5)
[2019-04-16 13:46] LABS: ANION GAP 12 (5-19); BLOOD UREA NITROGEN 8 mg/dL (7-20); CALCIUM 9.6 mg/dL (8.4-10.2); CARBON DIOXIDE 27 mmol/L (22-30); CHLORIDE 105 mmol/L (98-107); GLUCOSE 108 mg/dL (75-110); POTASSIUM 3.8 mmol/L (3.6-5.0)
[2019-04-16] MEDS ORDERED: ONDANSETRON HCL INJ/PF 4 MG/2 ML SDV IV ONE (13:59)
--- NOTE | 2019-04-16 13:59 | RADIOLOGY REPORT (SQ) ---
EXAM DESCRIPTION: CT FACIAL AREA WITH COMPLETED DATE/TIME: 04/16/2019 1:44 pm REASON FOR STUDY: posterior eye pain/swelling COMPARISON: None. TECHNIQUE: Post contrast images through the facial bones and orbits windowed for bone and soft tissu e. Additional coronal and sagittal reconstructed images reviewed. All images stored on PACS. All CT scanners at this facility use dose modulation, iterative reconstruction, and/or weight based d osing when appropriate to reduce radiation dose to as low as reasonably achievable (ALARA). [facility]: Dose Right [facility]: CareDose [facility]: Dose Right [facility]: Teradose 4D [facility]: [employer] CONTRAST TYPE AND DOSE: contrast/concentration: Isovue 350.00 mg/ml; Total Contrast Delivered: 50.0 ml; Total Saline Delivered: 40.2 ml RENAL FUNCTION: None required. The patient is less than 50 years old. RADIATION DOSE: CT Rad equipment meets quality standard of care and radiation dose reduction techniq ues were employed. CTDIvol: 15.4 mGy. DLP: 338 mGy-cm. . LIMITATIONS: None. FINDINGS: FACIAL BONES: No fracture or bone lesion. ORBITS: Intact. No fracture. Symmetric intact globes. There is swelling on the left dilated. PARANASAL SINUSES: Clear. No significant mucosal thickening, mass or fluid. No nasal polyps. Maxilla ry sinus outlets are patent. SOFT TISSUES: No mass or edema. No abnormal enhancement. INFERIOR BRAIN: Limited view. No acute findings. OTHER: No other significant finding. IMPRESSION: There is swelling of the left eyelid. No acute intraorbital finding. TECHNICAL DOCUMENTATION: JOB ID: [id number] Quality ID # [id number]: Final reports with documentation of one or more dose reduction techniques (e.g., Au tomated exposure control, adjustment of the mA and/or kV according to patient size, use of iterative reconstruction technique) 2010 [employer]- All Rights Reserved Reading location - IP/workstation name: [email or web address]
[2019-04-16] MEDS ORDERED: AZITHROMYCIN 250 MG TABLET PO ONE (14:59)
[2019-04-16] MEDS ORDERED: CEFTRIAXONE INJ 1000 MG VIAL IV ONE (14:59)
[2019-04-16 16:23] VITALS: BP 133/71
--- NOTE | 2019-04-24 12:28 | ER Document Report ---
Entered by SANDRA RAMACHANDRAN SCRIBE 04/16/19 1500 Acting as scribe for:JENNIFER CHEATHAM IV, MD ED Eye Complaint - General Chief Complaint: Eye Problem Stated Complaint: LEFT EYE PAIN Time Seen by Provider: 04/16/19 12:11 Primary Care Provider: BRUNO CARRINGTON FNP [Primary Care Provider] - Follow up as needed Mode of Arrival: Ambulatory Information source: Patient Notes: This 23-year-old female patient presents to the emergency department today for complaints of left eye discharge, blurred vision, and associated pain in the left eye. Patient has been seen at [facility] twice in the last week for these same complaints. Patient states that she was diagnosed with conjunctivitis both times. Patient states her initial visit to the [facility] was on 04/11 and she was prescribed polymyxin drops. Patient states 2 days later, on 04/13 her symptoms had not improved, maybe worsened, so she went back and she was changed to erythromycin ointment. Patient states that neither of these medications have improved her symptoms, stating there has been no change, perhaps slight worsening. Patient mentions that prior to this all occurring, her daughter had "sneezed directly in her eye". Patient adds that she "cleaned out her eye thoroughly", but raises concern that perhaps her symptoms are a result of this. Patient states there has not been any trauma to the eye. Patient does not wear contact lenses. Patient has no issues with her right eye. Patient states that she does not have an [facility] specialist to follow-up with. TRAVEL OUTSIDE OF THE [place] IN LAST 30 DAYS: No - Related Data Allergies/Adverse Reactions: steroids Allergy (Uncoded 12/30/18 13:34) Past Medical History - General Information source: Patient - Social History Smoking Status: Current Every Day Smoker Frequency of alcohol use: None Drug Abuse: None Family History: Reviewed & Not Pertinent Patient has suicidal ideation: No Patient has homicidal ideation: No Renal/ Medical History: Reports: Hx Kidney Stones. Denies: Hx Peritoneal Susan lysis GI Medical History: Reports: Hx Gastroesophageal Reflux Disease Psychiatric Medical History: Reports: Hx Anxiety, Hx Bipolar Disorder, Hx Depres felecia - anxiety/ptsd, Hx Personality Disorder, Hx Post Traumatic Stress Disorder Past Surgical History: Reports: Hx Section - x1, Hx Cholecystectomy, Hx Gynecologic Surgery - ovarian cyst, Hx Oral Surgery - wisdom, Hx Tonsillectomy, Hx Tubal Ligation Review of Systems - Review of Systems Constitutional: No symptoms reported EENT: See HPI, Eye pain, Eye discharge, Blurred vision, Tearing Cardiovascular: No symptoms reported Respiratory: No symptoms reported Gastrointestinal: No symptoms reported Genitourinary: No symptoms reported Female Genitourinary: No symptoms reported Musculoskeletal: No symptoms reported Skin: No symptoms reported Hematologic/Lymphatic: No symptoms reported Neurological/Psychological: No symptoms reported -: Yes All other systems reviewed and negative Physical Exam - Vital signs Vitals: Temp Pulse Resp BP Pulse Ox 98.1 F 99 20 150/106 H 96 04/16/19 12:08 04/16/19 12:08 04/16/19 12:08 04/16/19 12:08 04/16/19 12:08 - General General appearance: Appears well In distress: None - HEENT Eyes: Other - Left eye is significant for copious purulent discharge, diffuse ecchymosis and sensitivity to light palpation while moving the eyelids for the slit-lamp exam. There is no evidence of hyphema. No cell or flare. Negative Nerissa's. Forcing uptake was in a stippling pattern consistent with conjunc tivitis. The pupil is reactive to light and has a normal circular shape. There are no dendritic appearing lesions noted on the patient's left cornea during the slit lamp/fluorescein exam. Visual acuity- Right eye: 20/25 Visual acuity- Left eye: NA Visual acuity- Both eyes: Na Corrective lenses worn: Yes - pt not able to open the left eye - Respiratory Respiratory status: No respiratory distress Chest status: Nontender Breath sounds: Normal - Cardiovascular Rhythm: Regular Heart sounds: Normal auscultation Murmur: No - Abdominal Inspection: Normal Distension: No distension Bowel sounds: Normal - Back Back: Normal, Nontender - Extremities General upper extremity: Normal inspection. No: Edema General lower extremity: Normal inspection. No: Edema - Neurological Neuro grossly intact: Yes Cognition: Normal Orientation: AAOx4 - Psychological Associated symptoms: Normal affect, Normal mood - Skin Skin Temperature: Warm Skin Moisture: Dry Skin Color: Normal Course - Re-evaluation Re-evalutation: 04/16/19 14:58 There is no ophthalmology on-call for the emergency department. Call placed through the machine room operator for Dr. Brito as he is correctional lieutenant for his practice. Manager Materials Management mentions that unless the patient is an established patient of Dr. Brito, he is not to be contacted. Manager Materials Management confirms that there is ophthalmology on-call for the emergency department tomorrow (04/17) 04/16/19 15:01 Results of emergency room MSE discussed with patient. Patient states she understands everything is it was explained to her. Reasons to return to the emergency department discussed with the patient also. Given today's we do not have ophthalmology backup. Patient was instructed to return to the ED tomorrow if she is not improving and we will be able to refer her to ophthalmology which will be available tomorrow 04/17/2019. - Vital Signs Vital signs: Temp Pulse Resp BP Pulse Ox 98.0 F 85 16 133/71 H 100 04/16/19 16:22 04/16/19 16:22 04/16/19 16:22 04/16/19 16:22 04/16/19 16:22 - Laboratory Result Diagrams: 04/16/19 13:05 04/16/19 13:05 Laboratory results interpreted by me: 04/16/19 13:05 RDW 14.6 H Discharge - Discharge Clinical Impression: Acute conjunctivitis, left eye Condition: Good Disposition: HOME, SELF-CARE Instructions: Conjunctivitis ([facility]) Additional Instructions: Return to the Emergency Department without delay if any worse. He does mention that HOME CARE INSTRUCTIONS & INFORMATION: Thank you for choosing us for your medical needs. We hope you're satisfied with the care you received. After you leave, you must properly care for your problem and, at the same time, observe i ts progress. Any condition can change. Some illnesses can change rapidly over hours or days. If your condition worsens, return to the Emergency Department or see your physician promptly. ABOUT YOUR X-RAYS AND EKG'S: If you had an EKG or X-rays taken, they have been read by the Emergency Physician. The X-rays and EKG's will also be read by a Radiologist or Machine Hoop Maker within 24 hours. If discrepancies are noted, you will be notified by telephone. Please be certain the ED has a correct telephone number & address where you can be reached. Also, realize that some fractures or abnormalities do not show up on initial X-rays. If your symptoms continue, see your physician. ABOUT YOUR LABORATORY TEST: If you had laboratory tests, the results have been reviewed by the Emergency Physician. Some test results (for example cultures) may not be available for several days. You will be contacted if any test result shows you need additional treatment. Please be certain the ED has a correct telephone number and address where you can be reached. ABOUT YOUR MEDICATIONS: You will receive instructions on how to take your medicine on the prescription label you receive. Additional information may be provided by the Pharmacy. If you have questions afterwards, call the ED for clarification or further instructions. Some prescribed medications may cause drowsiness. Do not perform tasks such as driving a car or operating machinery without consulting your Pharmacist. If you feel you need a refill of pain medication, your condition will need re-evaluation. Please do not call for a refill of any medication. ABOUT YOUR SIGNATURE: Signature of this document acknowledges to followin. Understanding that you received emergency treatment and that you may be released before al medical problems are known or treated. Please be certain the ED has a correct phone number & address where you can be reached. 2. Acknowledgement that you will arrange for follow-up care as recommended. 3. Authorization for the Emergency Physician to provide information to your follow-up Physician in order to maximize your care. AT ANY TIME, IF YOUR SYMPTOMS CHANGE SIGNIFICANTLY OR WORSEN OR YOU DEVELOP NEW SYMPTOMS, RETURN TO THE EMERGENCY DEPARTMENT IMMEDIATELY FOR RE-EVALUATION. OUR GOAL IS TO PROVIDE EXCELLENT MEDICAL CARE! WE HOPE THAT WE HAVE MET YOUR EXPECTATIONS DURING YOUR EMERGENCY DEPARTMENT VISIT AND THAT YOU FEEL YOU HAVE RECEIVED EXCELLENT CARE! Prescriptions: Flurbiprofen Sodium 2.5 ml OS Q30MP PRN #1 bottle PRN Reason: pain Moxifloxacin HCl [Vigamox 0.5% Oph Soln 3 ml] 1 drop OP ASDIR PRN #1 bottle PRN Reason: Referrals: BRUNO CARRINGTON FNP [Primary Care Provider] - Follow up as needed I personally performed the services described in the documentation, reviewed and edited the documentation which was dictated to the scribe in my presence, and it accurately records my words and actions.
== END 2019-04-16 16:24 | disposition home or self-care (01) ==
LOC: ER 12:03
DX: H10.32 Unspecified acute conjunctivitis, left eye (principal); H53.8 Other visual disturbances; H57.11 Ocular pain, right eye; H53.142 Visual discomfort, left eye; F17.200 Nicotine dependence, unspecified, uncomplicated; Z88.8 Allergy status to other drugs, medicaments and biological substances
CPT/HCPCS: 99284; 96365; 96367; 36415; 85025; 80048; 70487; J0696; J2405

== ENCOUNTER 2019-06-16 22:33 | Emergency (ER) | payer OTHER ==
[2019-06-16] MEDS ORDERED: ONDANSETRON 4 MG TAB.RAPDIS PO ONE (23:00)
--- NOTE | 2019-06-16 23:00 | ER Document Report ---
ED Medical Screen (RME) - General Chief Complaint: Abdominal Pain Stated Complaint: WORM IN STOOL,ABDOMINAL PAIN,NAUSEA,VOMITING Time Seen by Provider: 06/16/19 22:56 Primary Care Provider: BRUNO CARRINGTON FNP [Primary Care Provider] - Follow up as needed Mode of Arrival: Ambulatory Information source: Patient Notes: 23-year-old female presented to ED for complaint of abdominal cramping nausea vomiting dizziness. She states about 4:00 this afternoon she went to the bathroom and she turned around to flush and she saw something about 6 inches long and wiggling and white in the toilet. She states it was not in the water it was weakly. Patient is alert oriented respirations regular nonlabored speaking in full sentences at this time. She states she has had all the symptoms started on Sunday worse on Sunday and is been the same since Sunday. I have greeted and performed a rapid initial assessment of this patient. A comprehensive ED assessment and evaluation of the patient, analysis of test results and completion of medical decision making process will be conducted by an additional ED providers. TRAVEL OUTSIDE OF THE [place] IN LAST 30 DAYS: No - Related Data Allergies/Adverse Reactions: steroids Allergy (Uncoded 12/30/18 13:34) Past Medical History Renal/ Medical History: Reports: Hx Kidney Stones. Denies: Hx Peritoneal Dialysis GI Medical History: Reports: Hx Gastroesophageal Reflux Disease Psychiatric Medical History: Reports: Hx Anxiety, Hx Bipolar Disorder, Hx Depression - anxiety/ptsd, Hx Personality Disorder, Hx Post Traumatic Stress Disorder Past Surgical History: Reports: Hx Section - x1, Hx Cholecystectomy, Hx Gynecologic Surgery - ovarian cyst, Hx Oral Surgery - wisdom, Hx Tonsillectomy, Hx Tubal Ligation Physical Exam - Vital signs Vitals: Temp Pulse Resp BP Pulse Ox 98.2 F 78 20 148/92 H 99 06/16/19 22:49 06/16/19 22:49 06/16/19 22:49 06/16/19 22:49 06/16/19 22:49 Course - Vital Signs Vital signs: Temp Pulse Resp BP Pulse Ox 98.2 F 78 20 148/92 H 99 06/16/19 22:49 06/16/19 22:49 06/16/19 22:49 06/16/19 22:49 06/16/19 22:49 Doctor's Discharge - Discharge Referrals: BRUNO CARRINGTON, CHICLE GRINDER FEEDER [Primary Care Provider] - Follow up as needed
[2019-06-17 00:07] LABS: ABSOLUTE EOSINOPHILS # (AUTO) 0.1 10^3/uL (0.0-0.6); ABSOLUTE LYMPHOCYTES (AUTO) 2.4 10^3/uL (0.5-4.7); ABSOLUTE MONOCYTES (AUTO) 0.5 10^3/uL (0.1-1.4); ABSOLUTE NEUT (AUTO) 6.4 10^3/uL (1.7-8.2); BASOPHILS % (AUTO) 0.4 % (0-2); EOSINOPHILS % (AUTO) 1.4 % (0-6); HEMATOCRIT 42.5 % (36.0-47.0); HEMOGLOBIN 14.2 g/dL (12.0-15.5); LYMPHOCYTES % (AUTO) 25.1 % (13-45); MEAN CORPUSCULAR HEMOGLOBIN 28.6 pg (27.0-33.4); MEAN CORPUSCULAR HGB CONC 33.4 g/dL (32.0-36.0); MEAN CORPUSCULAR VOLUME 86 fl (80-97); MONOCYTES % (AUTO) 5.5 % (3-13); PLATELET COUNT 211 10^3/uL (150-450); RED BLOOD COUNT 4.96 10^6/uL (3.72-5.28); RED CELL DISTRIBUTION WIDTH 14.6 % (11.5-14.0); SEGMENTED NEUTROPHILS % (AUTO) 67.6 % (42-78); TOTAL CELLS COUNTED % (AUTO) 100 %; WHITE BLOOD COUNT 9.4 10^3/uL (4.0-10.5)
[2019-06-17 00:26] LABS: ALBUMIN 4.9 g/dL (3.5-5.0); ALKALINE PHOSPHATASE 67 U/L (38-126); ANION GAP 15 (5-19); ASPARTATE AMINO TRANSFERASE 33 U/L (14-36); BILIRUBIN,DIRECT 0.3 mg/dL (0.0-0.4); BILIRUBIN,TOTAL 0.6 mg/dL (0.2-1.3); BLOOD UREA NITROGEN 6 mg/dL (7-20); CALCIUM 9.9 mg/dL (8.4-10.2); CARBON DIOXIDE 26 mmol/L (22-30); CHLORIDE 100 mmol/L (98-107); GLUCOSE 86 mg/dL (75-110); POTASSIUM 3.7 mmol/L (3.6-5.0); TOTAL PROTEIN 7.6 g/dL (6.3-8.2)
[2019-06-17 00:41] LABS: APPEARANCE,URINE SLIGHTLY-CLOUDY; BILIRUBIN,URINE NEGATIVE (NEGATIVE); COLOR,URINE YELLOW; GLUCOSE, URINE NEGATIVE (NEGATIVE); KETONES,URINE 20 mg/dL (NEGATIVE); PROTEIN,URINE NEGATIVE (NEGATIVE); URINE SPECIFIC GRAVITY 1.016; UROBILINOGEN,URINE NEGATIVE mg/dL (<2.0)
[2019-06-17] MEDS ORDERED: FAMOTIDINE 20 MG TABLET PO ONE (00:57)
[2019-06-17] MEDS ORDERED: SUCRALFATE 1 GM TABLET PO ONE (00:57)
[2019-06-17] MEDS ORDERED: METOCLOPRAMIDE HCL 10 MG TABLET PO ONE (00:57)
--- NOTE | 2019-06-17 00:59 | ER Document Report ---
ED GI/ - General Chief Complaint: Abdominal Pain Stated Complaint: WORM IN STOOL,ABDOMINAL PAIN,NAUSEA,VOMITING Time Seen by Provider: 06/16/19 22:56 Primary Care Provider: BRUNO CARRINGTON FNP [Primary Care Provider] - Follow up as needed Mode of Arrival: Ambulatory Notes: Patient is a 23-year-old female that comes to the emergency department for chief complaint of abdominal pain, abdominal cramping, nausea, vomiting. She states that she has had symptoms for about 3 days. She states she has had nausea today but she has not vomited today. She states she had 2 loose bowel movements to day, she states in both bowel movement she saw something "white and wriggling". She states she believes she saw worms. She states she did eat [place] food recently. She denies any raw food or foreign travel, denies any fresh water. Past medical history of cholecystectomy, tubal ligation, kidney stones, GERD, bipolar disorder. TRAVEL OUTSIDE OF THE [place] IN LAST 30 DAYS: No - Related Data Allergies/Adverse Reactions: steroids Allergy (Uncoded 12/30/18 13:34) Past Medical History - General Information source: Patient - Social History Smoking Status: Former Smoker Frequency of alcohol use: None Drug Abuse: None Lives with: Family Family History: Reviewed & Not Pertinent Patient has suicidal ideation: No Patient has homicidal ideation: No Renal/ Medical History: Reports: Hx Kidney Stones. Denies: Hx Peritoneal Dialysis GI Medical History: Reports: Hx Gastroesophageal Reflux Disease Psychiatric Medical History: Reports: Hx Anxiety, Hx Bipolar Disorder, Hx Depression - anxiety/ptsd, Hx Personality Disorder, Hx Post Traumatic Stress Disorder Past Surgical History: Reports: Hx Section - x1, Hx Cholecystectomy, Hx Gynecologic Surgery - ovarian tumor, Hx Oral Surgery - wisdom, Hx Tonsillectomy, Hx Tubal Ligation Review of Systems - Review of Systems Constitutional: No symptoms reported EENT: No symptoms reported Cardiovascular: No symptoms reported Respiratory: No symptoms reported Gastrointestinal: See HPI Genitourinary: No symptoms reported Female Genitourinary: No symptoms reported Musculoskeletal: No symptoms reported Skin: No symptoms reported Hematologic/Lymphatic: No symptoms reported Neurological/Psychological: No symptoms reported Physical Exam - Vital signs Vitals: Temp Pulse Resp BP Pulse Ox 98.2 F 78 20 148/92 H 99 06/16/19 22:49 06/16/19 22:49 06/16/19 22:49 06/16/19 22:49 06/16/19 22:49 - Notes Notes: GENERAL: Patient is smiling and well-appearing HEAD: Normocephalic, atraumatic. EYES: Pupils equal, round, and reactive to light. Extraocular movements intact. ENT: Oral mucosa moist, tongue midline. Oropharynx unremarkable. Airway patent. LUNGS: Clear to auscultation bilaterally, no wheezes, rales, or rhonchi. No respiratory distress. HEART: Regular rate and rhythm. No murmur ABDOMEN: There is some tenderness of the upper abdomen generally on both sides and in the epigastric area, the mid to lower abdomen is completely benign. No guarding or rigidity. Bowel sounds present. GENITOURINARY: Deferred EXTREMITIES: Moves all 4 extremities spontaneously. No edema, normal radial and dorsalis pedis pulses bilaterally. No cyanosis. BACK: no cervical, thoracic, lumbar midline tenderness. No saddle anesthesia, normal distal neurovascular exam. Moves all extremities in full range of motion. NEUROLOGICAL: Alert and oriented x3. Normal speech. Cranial nerves II through XII grossly intact. PSYCH: Normal affect, normal mood. SKIN: Warm, dry, normal turgor. No rashes or lesions noted. Course - Re-evaluation Re-evalutation: Patient has some generalized upper abdominal tenderness. She has had a ch olecystectomy. CBC, chemistry, lipase completely normal. negative. Urine indicates possible infection. No CVA tenderness, lower abdominal tenderness, flank pain, fever. No vaginal discharge or bleeding. She will be treated for UTI. I discussed remaining results. I suspect a component of gastritis. I have a lower suspicion of parasite, patient was unable to give us a stool sample, I discussed options. Patient is requesting to be treated for potential worms. She was given a culture prescription to bring back to have testing and she was given a prescription for albendazole. Discussed follow-up with primary care. Discussed return precautions. Patient states appreciation a nd agreement. Stable and well-appearing at time of discharge. - Vital Signs Vital signs: Temp Pulse Resp BP Pulse Ox 98.2 F 73 16 133/85 H 100 06/17/19 03:34 06/17/19 03:34 06/17/19 03:34 06/17/19 03:34 06/17/19 03:34 - Laboratory Result Diagrams: 06/16/19 23:50 06/16/19 23:50 Laboratory results interpreted by me: 06/16/19 06/16/19 06/16/19 23:50 23:50 23:50 RDW 14.6 H BUN 6 L ALT 60 H Lipase 21.3 L Urine Ketones Urine Blood Leukocyte Esterase Rfl 06/17/19 00:10 RDW BUN ALT Lipase Urine Ketones 20 H Urine Blood SMALL H Leukocyte Esterase Rfl MODERATE H Discharge - Discharge Clinical Impression: Abdominal pain Qualifiers: Abdominal location: generalized Qualified Code(s): R10.84 - Generalized abdominal pain Vomiting Qualifiers: Vomiting type: unspecified Vomiting Intractability: non-intractable Nausea presence: with nausea Qualified Code(s): R11.2 - Nausea with vomiting, unspecified Condition: Stable Disposition: HOME, SELF-CARE Additional Instructions: Your symptoms suggest gastritis, inflammation of the upper gastrointestinal tract. I recommend Zofran for nausea, Carafate if needed, avoid alcohol, NSAIDs, spicy food, caffeine, smoking. Start with bland food and slowly progress. You can also take [id number] medications such as Pepcid, Maalox, and Tylenol Because of the potential worms you have been prescribed a single dose of albend azole for this, I also recommend that you bring your stool for sampling/testing using the prescription. You also have a urinary tract infection, take antibiotics as prescribed to completion. Drink plenty of fluids. Return if you worsen including uncontrolled vomiting, spiking fevers, severe worsening pain, or any other concerning symptoms Prescriptions: Albendazole [Albenza] 400 mg PO DAILY #2 tablet Sucralfate [Carafate 1 gm Tablet] 1 gm PO QID #20 tablet Cephalexin Monohydrate [Keflex 500 mg Capsule] 500 mg PO BID 7 Days #14 capsule Ondansetron [Zofran Odt 4 mg Tablet] 1 - 2 tab PO Q4H PRN #15 tab.rapdis PRN Reason: For Nausea/Vomiting Forms: Follow-Up Laboratory Testing Referrals: BRUNO CARRINGTON FNP [Primary Care Provider] - Follow up as needed
[2019-06-17 03:54] VITALS: BP 133/85
== END 2019-06-17 03:55 | disposition home or self-care (01) ==
LOC: ER 22:33
DX: R10.84 Generalized abdominal pain (principal); R11.2 Nausea with vomiting, unspecified; R19.7 Diarrhea, unspecified; Z87.891 Personal history of nicotine dependence; Z88.8 Allergy status to other drugs, medicaments and biological substances; Z90.49 Acquired absence of other specified parts of digestive tract
CPT/HCPCS: 99284; 36415; 87086; 83690; 84703; 85025; 80053; 81001; S0119

== ENCOUNTER 2019-10-04 10:06 | Emergency (ER) | payer OTHER ==
--- NOTE | 2019-10-04 10:29 | ER Document Report ---
ED Medical Screen (RME) - General Chief Complaint: Abdominal Pain Stated Complaint: LOW RIGHT ABDOMINAL PAIN Time Seen by Provider: 10/04/19 10:21 Primary Care Provider: BRUNO CARRINGTON FNP [Primary Care Provider] - Follow up as needed Mode of Arrival: Ambulatory Information source: Patient Notes: 4-year-old female presented to ED for feels like sharp stabbing pain in the right ovary. She states the stabbing pain is a 5 out of 5. She states her last menstrual period was September 22 and the severe pain started right after her menstrual cycle. She states she had to go through 3 packs of 18 super plus tampons plus pads for her 4-day cycle. She is alert oriented respirations regular nonlabored speaking in full sentences. She states she does have a past medical history of ovarian cyst to have had to be removed 1 of which was a dermoid cyst. She also has had a bilateral tubal ligation gallbladder removed tonsils and adenoids and wisdom teeth. She also has history is of anxiety depression bipolar borderline personality disorder and PTSD. She states she smokes 1/2 pack a day drinks monthly and does not use any illicit drugs. She is on Marinol prescription. I have greeted and performed a rapid initial assessment of this patient. A comprehensive ED assessment and evaluation of the patient, analysis of test results and completion of medical decision making process will be conducted by an additional ED providers. TRAVEL OUTSIDE OF THE [place] IN LAST 30 DAYS: No - Related Data Allergies/Adverse Reactions: steroids Allergy (Uncoded 10/04/19 10:20) Past Medical History - Social History Chew tobacco use (# tins/day): No Frequency of alcohol use: Rare Drug Abuse: None Renal/ Medical History: Reports: Hx Kidney Stones. Denies: Hx Peritoneal Dialysis GI Medical History: Reports: Hx Gastroesophageal Reflux Disease Psychiatric Medical History: Reports: Hx Anxiety, Hx Bipolar Disorder, Hx Depression - anxiety/ptsd, Hx Personality Disorder, Hx Post Traumatic Stress Disorder Past Surgical History: Reports: Hx Section - x1, Hx Cholecystectomy, Hx Gynecologic Surgery - ovarian tumor, Hx Oral Surgery - wisdom, Hx Tonsillectomy, Hx Tubal Ligation Physical Exam - Vital signs Vitals: Temp Pulse Resp BP Pulse Ox 98.8 F 98 20 143/93 H 97 10/04/19 10:11 10/04/19 10:11 10/04/19 10:11 10/04/19 10:11 10/04/19 10:11 Course - Vital Signs Vital signs: Temp Pulse Resp BP Pulse Ox 98.8 F 98 20 143/93 H 97 10/04/19 10:21 10/04/19 10:11 10/04/19 10:11 10/04/19 10:11 10/04/19 10:11 Doctor's Discharge - Discharge Referrals: BRUNO CARRINGTON FNP [Primary Care Provider] - Follow up as needed
[2019-10-04] MEDS ORDERED: RINGERS SOLUTION,LACTATED 1,000 ML IV ONE (10:42)
[2019-10-04] MEDS ORDERED: MORPHINE SULFATE 10 MG/ML INJ IV ONE (10:43)
--- NOTE | 2019-10-04 10:47 | ER Document Report ---
ED GI/ - General Chief Complaint: Abdominal Pain Stated Complaint: LOW RIGHT ABDOMINAL PAIN Time Seen by Provider: 10/04/19 10:21 Primary Care Provider: BRUNO CARRINGTON FNP [Primary Care Provider] - Follow up as needed Mode of Arrival: Ambulatory Notes: 24-year-old female past medical history significant for ovarian cysts with previous removal of ovarian cyst as well as a dermoid cyst also history of depression, anxiety, bipolar, PTSD multiple personality disorder presents to the emergency room complaining of persistent, intermittent stabbing right lower quadrant pain for the past 5 days. States her last menstrual cycle was September 22 to September 25 states was heavier than normal with clots went through several super large pads. Patient states she has an appointment with a lean manager but is not until the states the pain is gotten so severe she cannot tolerate it at home any longer. She has been taken ibuprofen, Tylenol, and Flexeril without relief. She is a status post bilateral tubal ligation. Denies any fevers, denies any urinary symptoms. TRAVEL OUTSIDE OF THE [place] IN LAST 30 DAYS: No - Related Data Allergies/Adverse Reactions: steroids Allergy (Uncoded 10/04/19 10:20) Past Medical History - General Information source: Patient - Social History Smoking Status: Current Every Day Smoker Chew tobacco use (# tins/day): No Frequency of alcohol use: Rare Drug Abuse: Other - Marinol Lives with: Family Family History: Reviewed & Not Pertinent Patient has homicidal ideation: No Renal/ Medical History: Reports: Hx Kidney Stones. Denies: Hx Peritoneal Dialysis GI Medical History: Reports: Hx Gastroesophageal Reflux Disease Psychiatric Medical History: Reports: Hx Anxiety, Hx Bipolar Disorder, Hx Depression - anxiety/ptsd, Hx Personality Disorder, Hx Post Traumatic Stress Disorder Past Surgical History: Reports: Hx Section - x1, Hx Cholecystectomy, Hx Gynecologic Surgery - ovarian tumor, Hx Oral Surgery - wisdom, Hx Tonsillectomy, Hx Tubal Ligation Review of Systems - Review of Systems Constitutional: No symptoms reported Cardiovascular: No symptoms reported Respiratory: No symptoms reported Gastrointestinal: Abdominal pain, Nausea. denies: Vomiting, Constipation Genitourinary: No symptoms reported Female Genitourinary: Other - Right lower pelvic pain, Musculoskeletal: No symptoms reported Skin: No symptoms reported Neurological/Psychological: No symptoms reported -: Yes All other systems reviewed and negative Physical Exam - Vital signs Vitals: Temp Pulse Resp BP Pulse Ox 98.8 F 98 20 143/93 H 97 10/04/19 10:11 10/04/19 10:11 10/04/19 10:11 10/04/19 10:11 10/04/19 10:11 - General General appearance: Appears well, Alert In distress: Moderate - Respiratory Respiratory status: No respiratory distress Chest status: Nontender Breath sounds: Normal Chest palpation: Normal - Cardiovascular Rhythm: Regular Heart sounds: Normal auscultation Murmur: No - Abdominal Inspection: Obese Distension: No distension Bowel sounds: Normal Tenderness: Tender - Generalized abdominal discomfort worsening in the right lower quadrant region.. No: McBurney's point, Danielson's sign, Guarding, Rebound Organomegaly: No organomegaly - Back Back: Normal, Nontender. No: CVA tenderness - Neurological Neuro grossly intact: Yes Cognition: Normal Orientation: AAOx4 [place] Coma Scale Eye Opening: Spontaneous [place] Coma Scale Verbal: Oriented [place] Coma Scale Motor: Obeys Commands [place] Coma Scale Total: 15 Speech: Normal Motor strength normal: LUE, RUE, LLE, RLE Sensory: Normal - Skin Skin Temperature: Warm Skin Moisture: Dry Skin Color: Normal Course - Re-evaluation Re-evalutation: 10/04/19 10:47 Patient presents with worsening right lower quadrant pain and heavy menstrual cycle. Will check labs, ultrasound, medicate and reevaluate. 10/04/19 11:47 Patient is resting comfortably with decreased pain. Afebrile, nontoxic- appearing, reviewed all test results with patient. Aware of need to follow-up outpatient with her lean manager as scheduled. Naproxen as prescribed. Patient was not happy with the prescription of naproxen was requesting narcotics. Reviewed with patient that she is on multiple other medications that would interact with ongoing narcotics. Patient was given strict return to the emergency room guidelines. Return for any new or worsening symptoms. All questions were answered. Patient verbalized understanding but disagreed with plan. 10/04/19 12:55 - Vital Signs Vital signs: Temp Pulse Resp BP Pulse Ox 97.7 F 89 15 147/82 H 98 10/04/19 12:30 10/04/19 12:30 10/04/19 12:30 10/04/19 12:30 10/04/19 12:30 - Laboratory Result Diagrams: 10/04/19 10:33 10/04/19 10:33 Laboratory results interpreted by me: 10/04/19 10/04/19 10:33 10:45 Glucose 129 H Ur Leukocyte Esterase LARGE H - Diagnostic Test Radiology reviewed: Reports reviewed Discharge - Discharge Clinical Impression: Right ovarian cyst Condition: Stable Disposition: HOME, SELF-CARE Instructions: Ovarian Cyst ([facility]) Additional Instructions: Today been diagnosed with an ovarian cyst. These typically occur in the middle of your typical menstrual cycle. The pain should last for no more than 3-4 days. For your pain: Take Naproxen 500 mg twice a day, and acetaminophen 1000 mg every 6 hours as needed for pain. Please follow-up with your GALLERY OR MUSEUM GUIDE regarding today's visit. If you have multiple recurrent cyst that continue to cause you pain like this, you may require hormone therapy such as oral control pills to prevent recurrence of the same. Return if you develop fever, nausea, vomiting, worsening abdominal pain, pass out, or have any other symptoms that are worrisome to you. Prescriptions: Naproxen 500 mg PO BID PRN #20 tablet PRN Reason: Referrals: BRUNO CARRINGTON FNP [Primary Care Provider] - Follow up as needed
[2019-10-04 10:50] LABS: ABSOLUTE BASOPHILS # (AUTO) 0.1 10^3/uL (0.0-0.2); ABSOLUTE EOSINOPHILS # (AUTO) 0.2 10^3/uL (0.0-0.6); ABSOLUTE LYMPHOCYTES (AUTO) 1.9 10^3/uL (0.5-4.7); ABSOLUTE MONOCYTES (AUTO) 0.4 10^3/uL (0.1-1.4); ABSOLUTE NEUT (AUTO) 5.5 10^3/uL (1.7-8.2); BASOPHILS % (AUTO) 0.6 % (0-2); EOSINOPHILS % (AUTO) 2.9 % (0-6); HEMATOCRIT 39.7 % (36.0-47.0); HEMOGLOBIN 13.2 g/dL (12.0-15.5); LYMPHOCYTES % (AUTO) 23.8 % (13-45); MEAN CORPUSCULAR HEMOGLOBIN 27.9 pg (27.0-33.4); MEAN CORPUSCULAR HGB CONC 33.2 g/dL (32.0-36.0); MEAN CORPUSCULAR VOLUME 84 fl (80-97); MONOCYTES % (AUTO) 5.5 % (3-13); PLATELET COUNT 217 10^3/uL (150-450); RED BLOOD COUNT 4.72 10^6/uL (3.72-5.28); RED CELL DISTRIBUTION WIDTH 13.9 % (11.5-14.0); SEGMENTED NEUTROPHILS % (AUTO) 67.2 % (42-78); TOTAL CELLS COUNTED % (AUTO) 100 %; WHITE BLOOD COUNT 8.1 10^3/uL (4.0-10.5)
[2019-10-04 11:13] LABS: ALBUMIN 4.2 g/dL (3.5-5.0); ALKALINE PHOSPHATASE 62 U/L (38-126); ANION GAP 5 (5-19); ASPARTATE AMINO TRANSFERASE 19 U/L (14-36); BILIRUBIN,TOTAL 0.3 mg/dL (0.2-1.3); BLOOD UREA NITROGEN 8 mg/dL (7-20); CALCIUM 9.3 mg/dL (8.4-10.2); CARBON DIOXIDE 26 mmol/L (22-30); CHLORIDE 107 mmol/L (98-107); GLUCOSE 129 mg/dL (75-110); POTASSIUM 4.2 mmol/L (3.6-5.0); TOTAL PROTEIN 6.6 g/dL (6.3-8.2)
[2019-10-04 11:15] LABS: APPEARANCE,URINE SLIGHTLY-CLOUDY; BILIRUBIN,URINE NEGATIVE (NEGATIVE); COLOR,URINE YELLOW; GLUCOSE, URINE NEGATIVE (NEGATIVE); KETONES,URINE NEGATIVE (NEGATIVE); LEUKOCYTE ESTERASE,URINE LARGE (NEGATIVE); NITRITE,URINE NEGATIVE (NEGATIVE); PROTEIN,URINE NEGATIVE (NEGATIVE); UROBILINOGEN,URINE NEGATIVE mg/dL (<2.0)
--- NOTE | 2019-10-04 11:21 | RADIOLOGY REPORT (SQ) ---
EXAM DESCRIPTION: U/S NON-OB PELVIS TV W/O DOP IMAGES COMPLETED DATE/TIME: 10/04/2019 11:06 am REASON FOR STUDY: Right pelvic pain hx of ovarian cyst and dermoid c COMPARISON: 09/19/2017. TECHNIQUE: Dynamic and static grayscale images acquired of the pelvis via transvaginal approach and recorded on PACS. Additional selected color Doppler and spectral images recorded. LIMITATIONS: None. FINDINGS: UTERUS: Contour normal. No mass. ENDOMETRIAL STRIPE: No focal or generalized thickening. No masses. CERVIX: No nabothian cysts. Trace fluid in the cervical canal. RIGHT OVARY AND DOPPLER: Normal size. 3.2 cm cyst. No worrisome masses. Normal arterial vascular fl ow without evidence for torsion. LEFT OVARY AND DOPPLER: Normal size. No worrisome masses. Normal arterial vascular flow without evide nce for torsion. FREE FLUID: None noted. OTHER: No other significant finding. MEASUREMENTS: UTERUS: 4.7 x 4.8 x 9.4 cm. ENDOMETRIAL STRIPE: 1.4 cm. RIGHT OVARY: 3.0 x 3.6 x 4.3 cm. LEFT OVARY: 2.6 x 2.6 x 3.2 cm. IMPRESSION: 3.2 CM RIGHT OVARIAN CYST. OTHERWISE UNREMARKABLE TRANSVAGINAL PELVIC ULTRASOUND. TECHNICAL DOCUMENTATION: JOB ID: [id number] [employer]- All Rights Reserved Rev-09/07 Reading location - IP/workstation name: [email or web address]
[2019-10-04] MEDS ORDERED: HYDROCODONE/ACETAMINOPHEN 5-325 MG TABLET PO ONE (12:06)
[2019-10-04 12:31] VITALS: BP 147/82
== END 2019-10-04 12:31 | disposition home or self-care (01) ==
LOC: ER 10:06
DX: N83.201 Unspecified ovarian cyst, right side (principal); R10.31 Right lower quadrant pain; R11.0 Nausea; F17.200 Nicotine dependence, unspecified, uncomplicated; Z88.8 Allergy status to other drugs, medicaments and biological substances
CPT/HCPCS: 36415; 76830; 80053; 81001; 83690; 84703; 85025; 87086; 99284